=== PATIENT | male | born 1955 | race Caucasian/White ===

== ENCOUNTER → 2019-08-14 | Outpatient (CLI) | payer BC ==
--- NOTE | 2019-08-14 17:02 | CARDNUC ---
[place] [address] CARDIAC NUCLEAR IMAGING REPORT Name: BLANCA FORBES Room: [facility]#: [id number] Admission: 08/14/19 Attend Phys: Quinten Mcadams MD Discharge: Date of : 57 Date of Service: 08/14/19 1702 Report #: [id number] THIS REPORT FOR: //name// APPROVED REPORT Study performed: 08/14/2019 14:13:47 Exam: Nuclear Stress Test Indication: FU s/p PCI. Patient Location: Out-Patient Stress Tech: Ruben Petersen Stress Nurse: Amada Osei RN NM Tech:TERRANCE Levin Ht: 6 ft 4 in Wt: 225 lbs BSA: 2.33 m2 BMI: 27.38 Medical History Medical History: CAD s/p stent, HTN, Hyperlipidemia, Smoking, PVD, Bilateral Carotid Bruits. Medications: Simvastatin, ASA 81 Mg, NTG, Losartan. Allergies: No known drug allergies Cardiac Risk Factors: Age, Current Smoker, HTN, Hyperlipidemia, PVD, Bilateral Carotid Bruits. Previous Cardiac Procedures: PCI Pretest Chest Pain Characteristics: No chest pain Exercise History: Indeterminate Physical Disabilities: Knees. Meds Held (24 hrs): NTG. Stress Test Details Stress Test: Pharmacologic stress was paired with low level exercise. Reason for pharmacologic stress test: arthritis, painful knees.. HR Resting HR: 65 bpm Max Heart Rate (APMHR): 158 bpm Max HR Achieved: 105 bpm Target HR (85% APMHR): 134 bpm % of APMHR: 66 Recovery HR: 70 bpm BP Resting BP: 154/95 mmHg Max BP: 154/92 [place] [address] CARDIAC NUCLEAR IMAGING REPORT Name: BLANCA FORBES Room: [facility]#: [id number] Admission: 08/14/19 Attend Phys: Quinten Mcadams MD Discharge: Date of : 57 Date of Service: 08/14/19 1702 Report #: [id number] ECG Resting ECG: Sinus Rhythm Stress ECG: Sinus Rhythm ST Change: None Arrhythmia: None Recovery ECG: Sinus Rhythm Recovery ST Change: None Recovery Arrhythmia: None Clinical Reason for Termination: Completed protocol Stress Symptoms: Dyspnea Exercise duration: 4 min 00 sec Exercise capacity: 2.30 METs The patient tolerated Lexiscan infusion without significant cardiac symptoms. Nurse Comments A 63 year old male presented for walking Lexiscan Nuclear Stress Test s/p PCI. Test well tolerated. Recovery unremarkable with PO caffeine, effective. Patient was escorted by staff to Nuclear Medicine for images. Patient was stable with no complaints at that time, he stated he felt good. Stress ECG Conclusion The baseline 12-lead EKG show sinus rhythm without significant ST or T wave abnormality. EKGs obtained during and post Lexiscan infusion show sinus rhythm and sinus tachycardia with no significant ST or T wave changes when compared to baseline. There were no stress-induced arrhythmias. NM EXAM: Myocardial Perfusion REST/STRESS Imaging Protocol: Rest Tc-99m/Stress Tc-99m 1 day Resting Data Rest SPECT myocardial perfusion imaging was performed in supine position 30 minutes following the intravenous injection of 10.7 mCi of Tc-99m Sestamibi. Time of rest injection: 1250 Date: 08/14/2019 The images were gated to evaluate regional wall motion and calculate left ventricular ejection fraction. Administration Route: IV Administration Site: Right AC Pharmacologic Stress Pharmacologic stress test was performed by injecting Regadenoson 0.4 [place] [address] CARDIAC NUCLEAR IMAGING REPORT Name: BLANCA FORBES Room: [facility]#: [id number] Admission: 08/14/19 Attend Phys: Quinten Mcadams MD Discharge: Date of : 57 Date of Service: 08/14/19 1702 Report #: [id number] mg IV push followed by the intravenous injection of 34.1 mCi of Tc-99m Sestamibi. Time of stress injection: 1440 Date: 08/14/2019 Administration Route: IV Administration Site: Right AC Gated Stress SPECT was performed 40 minutes after stress injection. The images were gated to evaluate regional wall motion and calculate left ventricular ejection fraction. Prone imaging was performed. Study Quality Study: Good Artifact: Moderate Diaphragmatic artifact Study Data At rest, the left ventricular ejection fraction was 59%.. Post stress, the left ventricular ejection was 58%.. TID = 1.00. Perfusion Perfusion images obtained in the supine position at rest and post Lexiscan stress show a moderate region of photopenia of the inferior wall. Review of the raw data shows extensive diaphragmatic attenuation artifact. Post stress prone imaging shows near complete resolution of the photopenia. No other defects were identified. Wall Motion Normal left ventricular wall motion. Nuclear Conclusion ECG Findings: negative for ischemia Clinical Findings: negative for ischemia Nuclear Findings: negative for ischemia Exercise Capacity: not assessed Left Ventricular Function: normal Risk Study: low Myocardial perfusion images show no defect to suggest ischemia. The defect on the supine images is likely due to diaphragmatic attenuation artifact. Left ventricular systolic function is normal on gated studies. This is a low risk study. <Conclusion> The baseline 12-lead EKG show sinus rhythm without significant ST or T wave abnormality. EKGs obtained during and post Lexiscan infusion show sinus rhythm and sinus tachycardia with no [place] [address] CARDIAC NUCLEAR IMAGING REPORT Name: BLANCA FORBES Room: [facility]#: [id number] Admission: 08/14/19 Attend Phys: Quinten Mcadams MD Discharge: Date of : 57 Date of Service: 08/14/19 1702 Report #: [id number] wave changes when compared to baseline. There were no stress-induced arrhythmias. <ELECTRONICALLY SIGNED> By: Santi Whitney MD, FACC 08/14/191701 01 01 Santi Whitney MD, FACC /INF
== END ==
LOC: M.NUC 08-05 09:48
DX: R00.0 Tachycardia, unspecified (principal); R06.00 Dyspnea, unspecified; I10 Essential (primary) hypertension; E78.5 Hyperlipidemia, unspecified; I25.10 Atherosclerotic heart disease of native coronary artery without angina pectoris; Z87.891 Personal history of nicotine dependence